=== PATIENT | female | born 1985 | race Caucasian/White ===

== ENCOUNTER → 2016-12-11 | Outpatient (CLI) | payer BC ==
--- NOTE | ~2016-12-11 | MY30 ---
[facility] A Service [facility] RADIOLOGY TEXT RESULTS PATIENT: MIMI GUZMAN LOCATION: [facility] : 81 UNIT #: [id number] AGE: [address]: Garland Patel MD SEX: F ORDER DR: [id number] [address] [id number] O MR#: [id number] Acc #: [id number] NAME: MIMI GUZMAN : 1985 SEX: F STUDY DATE/TIME: 12/11/2016 8:57 UNIT: [facility] ROOM: STUDY DESCRIPTION: MY SCREEN YAMINI BILAT DIGITAL Attending Physician: Garland Patel M.D. Referring Physician: Garland Patel M.D. Ordering Physician: Garland Patel M.D. Primary Care Physician: Garland Patel M.D. MEDICAL IMAGING REPORT This report is preliminary unless electronic signature is present. EXAMINATION Bilateral digital screening mammogram with CAD. DATE 12/11/2016 HISTORY 31-year-old female with positive family history of breast cancer in maternal grandmother at the age 40. No personal history of breast cancer or current complaints. COMPARISON None. This is the patient's baseline screening study. FINDINGS CC and MLO views were obtained of each breast utilizing digital technique and reviewed with an FDA-approved CAD device. Heterogeneously dense fibroglandular tissue is present bilaterally which can limit sensitivity of mammography. No suspicious nodule, architectural distortion or microcalcification is seen. IMPRESSION BIRADS 1. Negative screening mammogram. Routine screening mammogram is recommended in one year. Patients over the age of 40 are entered into a reminder system with target due date for the next mammogram. A result letter will also be sent to the patient. BIRADS: 1 Negative. [facility] A [facility] RADIOLOGY TEXT RESULTS PATIENT: MIMI GUZMAN LOCATION: [facility] : 81 UNIT #: [id number] AGE: [address]: Garland Patel MD SEX: F ORDER DR: Dictated by... Adelita Astudillo M.D. THIS IS AN ELECTRONICALLY VERIFIED REPORT Adelita Astudillo M.D. at 12/16/2016 3:26 PM SHELLY/june TD: 12/11/2016 17:29 JOB #: [id number] MEDICAL IMAGING REPORT Page 1 of 1
== END | disposition home or self-care (01) ==
LOC: SMAM 08:12
DX: Z12.31 Encounter for screening mammogram for malignant neoplasm of breast (principal); Z80.3 Family history of malignant neoplasm of breast
CPT/HCPCS: G0202